=== PATIENT | female | born 1985 | race African-American/Black ===

== ENCOUNTER 2016-08-14 16:31 | Emergency (ER) | payer SELFPAY ==
[~2016-08-14] VITALS: Ht 165.1 cm; Wt 86.0 kg
[~2016-08-14 16:31] MED LIST: BACT800T5 PO; CEPH500C3 PO; FLUC150T PO
[2016-08-14 16:33] VITALS: BP 138/73; PULSE 80; RESP 12; TEMP 98.1; O2SAT 99
[2016-11-24] MEDS ORDERED: FLUC150T PO (15:41)
== END 2016-08-14 17:25 | disposition left against medical advice (07) ==
LOC: NED 16:31
DX: S41.111A Laceration without foreign body of right upper arm, initial encounter (principal); X58.XXXA Exposure to other specified factors, initial encounter
CPT/HCPCS: 99281

== ENCOUNTER 2016-09-19 01:22 | Emergency (ER) | payer OTHER ==
[~2016-09-19] VITALS: Ht 165.1 cm; Wt 83.5 kg
[2016-09-19 01:28] VITALS: BP 128/85; PULSE 61; RESP 16; TEMP 98.6; O2SAT 100
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
[2016-11-24] MEDS ORDERED: FLUC150T PO (15:41)
== END 2016-09-19 02:32 | disposition home or self-care (01) ==
LOC: PHED 01:22
DX: T19.2XXA Foreign body in vulva and vagina, initial encounter (principal)
CPT/HCPCS: 99283

== ENCOUNTER 2016-11-06 10:28 | Emergency (ER) | payer OTHER, MEDICAID ==
[~2016-11-06] VITALS: Ht 165.1 cm; Wt 85.5 kg
[2016-11-06 10:30] VITALS: BP 123/87; PULSE 103; RESP 16; TEMP 97.7; O2SAT 98
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
[2016-11-06] MEDS ORDERED: IBUP-232 PO (11:44)
[2016-11-24] MEDS ORDERED: FLUC150T PO (15:41)
== END 2016-11-06 11:51 | disposition home or self-care (01) ==
LOC: PHEFT 10:28
DX: S90.32XA Contusion of left foot, initial encounter (principal); V09.9XXA Pedestrian injured in unspecified transport accident, initial encounter
CPT/HCPCS: 73630; 99283